=== PATIENT | female | born 1970 | race Caucasian/White ===

== ENCOUNTER → 2019-02-27 | Outpatient (CLI) | payer OTHER ==
--- NOTE | 2019-02-27 11:04 | EXE ---
[facility] [place] [address] STRESS ECHOCARDIOGRAM Name: JANET SORIA Room #: REG Matias#: [id number] ������������� Admission: 02/27/19 ������������� Attend Phys: Jeremiah Anglin Discharge: ��� ������������� ��� Date of : 74 Date of Service: 02/27/19 1104 �� Report #: [id number] �������� ��������������������������������������������[id number] THIS REPORT FOR: //name// APPROVED REPORT Study performed: 02/27/2019 09:24:33 Exam: Stress Echocardiogram Indication: SVT Patient Location: Out-Patient Stress Nurse: Deepa Haskins RN Room #: Echo lab 2 Status: routine Ht: 5 ft 8 in HR: 78 bpm BP: 126/82 mmHg Rhythm: NSR Medical History Cardiac Risk Factors: HTN Exercise History: Indeterminate Procedure The patient underwent an Exercise Stress Test using the Fawad Protocol. Blood pressure, heart rate, and EKG were monitored. An Echocardiogram was performed by data technician in four stages in quad fashion. At peak stress, four selected images were obtained and placed side by side with resting images for comparison. Stress Test Details Stress Test: Exercise stress testing was performed using a Fawad protocol. HR Resting HR: 78 bpm Max Heart Rate (APMHR): 174 bpm Max HR Achieved: 184 bpm Target HR (85% APMHR): 147 bpm % of APMHR: 105 Recovery HR: 100 bpm HR response to stress: Normal HR response to stress BP Resting BP: 126/82 mmHg Max BP: 168/92 mmHg Recovery BP: 154/70 mmHg BP response to stress: Normal blood pressure response to stress. [facility] [address] [place] [address] STRESS ECHOCARDIOGRAM Name: JANET SORIA Room #: REG [facility] [id number] ������������� Admission: 02/27/19 ������������� Attend Phys: Jeremiah Anglin Discharge: ��� ������������� ��� Date of : 74 Date of Service: 02/27/19 1104 �� Report #: [id number] �������� ��������������������������������������������[id number] ECG Resting ECG: Sinus Rhythm Stress ECG: Sinus Tachycardia Recovery ECG: Sinus Rhythm Recovery ST Change: Downsloping ST depression Clinical Reason for Termination: Maximal effort Exercise duration: 8 min sec Highest Stage Achieved: Stage 3: 3.4 mph at 14% grade. Exercise capacity: 10.1 METs Overall Exercise Capacity for Age: Normal Stress ECG Conclusion 1. Subjectively negative for ischemia 2. Electrocardiographic negative for ischemia during exercise with the presence of downsloping ST segments in recovery in high voltage lead significance unknown 3. Average functional capacity Pre-Stress Echo The resting Echocardiogram showed normal left ventricular contractility with an estimated Ejection Fraction of about >55%. Normal wall motion in all segments on baseline images. Post-Stress Echo The stress Echocardiogram showed normal left ventricular contractility with an estimated Ejection Fraction of about 65-70%. Normal augmentation of wall motion in all segments on post stress images. Conclusion Clinical Response: Non-ischemic Exercise Capacity: Average Stress ECG Response: Equivocal Stress Echo Images: Non-ischemic 1. Low risk study No prior study available for comparison. Other Information Study Quality: Adequate [facility] [address] [place] [address] STRESS ECHOCARDIOGRAM Name: JANET SORIA Room #: REG [facility]#: [id number] ������������� Admission: 02/27/19 ������������� Attend Phys: Jeremiah Anglin Discharge: ��� ������������� ��� Date of : 74 Date of Service: 02/27/19 1104 �� Report #: [id number] �������� ��������������������������������������������[id number] <Conclusion> 1. Low risk study ��������������������������������������������� <ELECTRONICALLY SIGNED> ���������������������������������������� By: Jeremiah Tracy MD ��������������������������������������������� 02/27/19 1104 1104 1104 Jeremiah Tracy MD /INF
== END ==
LOC: CV 02-08 13:29
DX: I47.1 Supraventricular tachycardia (principal)